=== PATIENT | male | born 1950 | race African-American/Black ===

== ENCOUNTER 2017-11-11 11:59 | Emergency (ER) | payer MEDICARE ==
[2017-11-11] MEDS: DIPHTH,PERTUSS(ACELL),TET TOX 0.5 ML DISP.SYRIN. VAX IM ×2 (14:31)
== END 2017-11-11 14:30 | disposition home or self-care (01) ==
LOC: ER 11:59
DX: S61.211A Laceration without foreign body of left index finger without damage to nail, initial encounter (principal); R55 Syncope and collapse; X58.XXXA Exposure to other specified factors, initial encounter; Y93.89 Activity, other specified; Y92.89 Other specified places as the place of occurrence of the external cause; Y99.8 Other external cause status
CPT/HCPCS: 73140; 90471; 90715; 93005; 99284